=== PATIENT | female | born 1980 | race Caucasian/White ===

== ENCOUNTER 2017-12-09 16:55 | Emergency (ER) | payer MEDICAID, OTHER ==
[~2017-12-09] VITALS: Ht 170.2 cm; Wt 69.5 kg
[2017-12-09] MEDS ORDERED: ONDANSETRON ODT 4 MG PO ONE (17:30)
[2017-12-09] MEDS ORDERED: PHENAZOPYRIDINE 200 MG TABLET PO ONE (17:30)
[2017-12-09] MEDS ORDERED: QUET25TA5 PO (17:35)
[2017-12-09] MEDS ORDERED: DIVA125T2 PO (17:35)
[2017-12-09] MEDS ORDERED: ALPR0.5T3 PO (17:36)
[2017-12-09] MEDS ORDERED: TEMA7.5C PO (17:36)
[2017-12-09] MEDS ORDERED: PHENAZOPYRIDINE 200 MG TABLET ONE (17:37)
[2017-12-09] MEDS ORDERED: ONDANSETRON ODT 4 MG ONE (17:38)
[2017-12-09 17:42] LABS: HCG UR SG 1.019 (1.003-1.030); MICROSCOPIC AUTO
[2017-12-09 17:43] LABS: CULTURE INDICATED? YES
[2017-12-09 17:45] VITALS: BP 115/75
[2017-12-09] MEDS ORDERED: CEFTRIAXONE 1,000 MG IM ONE (18:00)
[2017-12-09] MEDS ORDERED: CEFTRIAXONE 1,000 MG ONE (18:00)
== END 2017-12-09 18:24 | disposition home or self-care (01) ==
LOC: ED 18:21
DX: N39.0 Urinary tract infection, site not specified (principal); R31.9 Hematuria, unspecified
CPT/HCPCS: 81001; 81025; 87086; 93005; 96372; 99285; J0696; Q0162